=== PATIENT | female | born 1965 | race American Indian/Alaskan Native ===

== ENCOUNTER 2017-02-09 18:16 | Emergency (ER) | payer BC ==
[2017-02-09 18:37] VITALS: BP 137/71
--- NOTE | 2017-02-09 18:54 | Emergency Department Report ---
Abscess Boil HPI - HPI Chief Complaint: Skin/Abscess/Foreign Body Stated Complaint: BOIL RT UNDER-ARM Time Seen by Provider: 02/09/17 18:49 Duration: 2 Days Location: Lower Extremity Severity: Mild History: Yes Pain, Yes Previous History, No Fever, No Purulent Drainage, No Numbness, No Foreign Body, No Insect Bite HPI: hydradenits right axillary acute on chronic x 3 days Home Medications: Previous Rx's Medication Instructions Recorded Last Taken Type Cephalexin [Keflex] 500 mg PO Q8HR #30 cap 02/09/17 Unknown Rx Naproxen [Naprosyn] 500 mg PO BID PRN #60 tablet 02/09/17 Unknown Rx Allergies/Adverse Reactions: Allergies Allergy/AdvReac Type Severity Reaction Status Date / Time No Known Allergies Allergy Unverified 02/09/17 18:36 ED Review of Systems ROS: Stated complaint: BOIL RT UNDER-ARM Other details as noted in HPI Constitutional: denies: chills, fever Eyes: denies: eye pain, eye discharge, vision change ENT: denies: ear pain, throat pain Respiratory: denies: cough, shortness of breath, wheezing Cardiovascular: denies: chest pain, palpitations Endocrine: no symptoms reported Gastrointestinal: denies: abdominal pain, nausea, diarrhea Genitourinary: denies: urgency, dysuria, discharge Musculoskeletal: denies: back pain, joint swelling, arthralgia Skin: lesions, other (right axillary hydradenitis ) Neurological: denies: headache, weakness, paresthesias Psychiatric: denies: anxiety, depression Hematological/Lymphatic: denies: easy bleeding, easy bruising ED Past Medical Hx - Past Medical History Hx Hypertension: Yes - Surgical History Additional Surgical History: tubal ligation - Social History Smoking Status: Current Every Day Smoker Substance Use Type: None - Medications Home Medications: Home Medications Medication Instructions Recorded Confirmed Last Taken Type Cephalexin [Keflex] 500 mg PO Q8HR #30 cap 02/09/17 Unknown Rx Naproxen [Naprosyn] 500 mg PO BID PRN #60 tablet 02/09/17 Unknown Rx ED Abscess Boil Physical Exam - Exam General: Vital signs noted. No distress. Alert and acting appropriately. Size: 1 cm Exam: Yes Tenderness, Yes Normal Neurologic Exam, Yes Normal Circulation, No Fluctuance, No Surrounding Cellulites/Erythema, No Lymphangitis, No Crepitation , No Heart Murmur I & D Note - I & D Note I & D Note: pt refuses will follow up with her primary care ED Course Vital Signs 02/09/17 18:33 Temperature 98.2 F Pulse Rate 76 Respiratory 18 Rate Blood Pressure 137/71 O2 Sat by Pulse 99 Oximetry Critical care attestation.: If time is entered above; I have spent that time in minutes in the direct care of this critically ill patient, excluding procedure time. ED Medical Decision Making - Medical Decision Making pt presents for recurrent right axillary hydradenitis last exacerbated last year usually tx with keflex, pt refuses I&D today defers to pcp , will rx keflex po tid and nsaid prn pain , pt will follow up with primary care doctor as scheduled, exam: small abscess less than 1 cm no drainage no fluctuance mild erythema, rom intact no lymph no fever. ED Disposition Clinical Impression: Hydradenitis Disposition: DC-01 TO HOME OR SELFCARE Is pt being admited?: No Does the pt Need Aspirin: No Condition: Good Instructions: Abscess (ED) Prescriptions: Cephalexin [Keflex] 500 mg PO Q8HR #30 cap Naproxen [Naprosyn] 500 mg PO BID PRN #60 tablet PRN Reason: Pain Forms: Work/School Release Form(ED) Time of Disposition: 18:57
== END 2017-02-09 19:14 | disposition home or self-care (01) ==
LOC: ED 18:16
DX: L73.2 Hidradenitis suppurativa (principal); I10 Essential (primary) hypertension; F17.200 Nicotine dependence, unspecified, uncomplicated
CPT/HCPCS: 99282

== ENCOUNTER 2017-05-23 17:20 | Emergency (ER) | payer BC ==
[2017-05-23 18:29] VITALS: BP 172/67
[2017-05-23 19:00] LABS: Basophils % (Auto) 0.5 % (0.0-1.8); Eosinophils % (Auto) 0.8 % (0.0-4.3); Hematocrit 37.5 % (30.3-42.9); Hemoglobin 12.2 gm/dl (10.1-14.3); Mean Corpuscular HGB Conc 33 % (30-34); Mean Corpuscular Hemoglobin 28 pg (28-32); Mean Corpuscular Volume 87 fl (79-97); Platelet Count 312 K/mm3 (140-440); Red Blood Count 4.33 M/mm3 (3.65-5.03); Red Cell Distribution Width 13.6 % (13.2-15.2); White Blood Count 11.4 K/mm3 (4.5-11.0)
[2017-05-23 19:11] LABS: INR 1.02 (0.87-1.13)
[2017-05-23 19:12] LABS: Partial Thromboplastin Time 30.9 Sec. (24.2-36.6)
[2017-05-23 19:25] LABS: Anion Gap 17 mmol/L; BUN/Creatinine Ratio 36; Blood Urea Nitrogen 29 mg/dL (7-17); Calcium 9.7 mg/dL (8.4-10.2); Carbon Dioxide 27 mmol/L (22-30); Glucose 98 mg/dL (65-100); Potassium 4.4 mmol/L (3.6-5.0); Sodium 137 mmol/L (137-145)
== END 2017-05-23 19:17 | disposition left against medical advice (07) ==
LOC: ED 17:20
DX: F41.9 Anxiety disorder, unspecified (principal); Z53.21 Procedure and treatment not carried out due to patient leaving prior to being seen by health care provider
CPT/HCPCS: 36415; 80048; 84484; 85025; 85610; 85730; 93005; 93010